=== PATIENT | female | born 1975 | race Hispanic/Latino ===

== ENCOUNTER 2017-10-15 20:16 | Emergency (ER) | payer SELFPAY ==
[2017-10-15 20:17] VITALS: BMI 27.3
[2017-10-15 20:25] VITALS: BP 139/92; PULSE 81; TEMP 98.1; O2SAT 97
[2017-10-15] MEDS ORDERED: Bacitracin Ointment 30 GM TUBE TOP STA (20:37)
[2017-10-15] MEDS ORDERED: Amoxicillin-Clav 875-125 mg Tab PO STA (20:37)
[2017-10-15] MEDS ORDERED: Bacitracin 500 Units/gm Oint Foilpak UD TOP ONE (20:37)
[2017-10-15] MEDS ORDERED: Amoxicillin-Clav 875-125 mg Tab PO ONE (20:50)
[2017-10-15] MEDS ORDERED: Bacitracin 500 Units/gm Oint Foilpak UD ONE ×2 (20:51→20:57)
--- NOTE | 2017-10-15 20:54 | C.PDOC ---
History Of Present Illness Patient is a 42 y/o female who presents to the ED s/p dog bite to the right hand just prior to arrival. Last Tetanus shot 2013. Pt was at [employer] to foster a dog and was getting the dog in the car when the dog bit her. Pt was informed the dog is not up to date with rabies shot; currently quarantined. No other physical complaints at this time. Time Seen by Provider: 10/15/17 20:26 Chief Complaint (Nursing): Bite History Per: Patient History/Exam Limitations: no limitations Onset/Duration Of Symptoms: Mins ([employer]) Current Symptoms Are (Timing): Still Present Location Of Injury: Right: Hand, Posterior: Hand Recent travel outside of the [place]: No - Animal Bite Reports Animal's Immunization Status: Not Recently Immunized Past Medical History Reviewed: Historical Data, Nursing Documentation, Vital Signs Vital Signs: Last Vital Signs Temp 98.1 F 10/15/17 20:22 Pulse 81 10/15/17 20:22 Resp 20 10/15/17 21:10 BP 139/92 H 10/15/17 20:22 Pulse Ox 97 10/15/17 21:22 - Medical History PMH: No Chronic Diseases Surgical History: No Surg Hx Family History: States: Unknown Family Hx - Social History Hx Alcohol Use: Yes Hx Substance Use: No - Immunization History Hx Tetanus Toxoid Vaccination: Yes (2013) Review Of Systems Skin: Positive for: Other (lacerations to right hand) Physical Exam - Physical Exam Appears: Well, Non-toxic, No Acute Distress Skin: Other (puncture wound to dorsal and proximal aspect of right hand) Head: Atraumatic, Normacephalic Eye(s): bilateral: Normal Inspection, EOMI Nose: Normal Oral Mucosa: Moist Chest: Symmetrical Respiratory: No Accessory Muscle Use Extremity: Normal ROM, Capillary Refill (<2 sec), Swelling (mild) Pulses: Left Radial: Normal, Right Radial: Normal Neurological/Psych: Oriented x3, Normal Speech, Normal Motor, Normal Sensation ED Course And Treatment O2 Sat by Pulse Oximetry: 97 (room air) Pulse Ox Interpretation: Normal Progress Note: Pt was offered XR, refused. Plan: Bacitracin and Augmentin administered. Wound thoroughly dressed and irigated by RN. Patient is resting comfortably, and is in no acute distress. Dsicussed risks vs benefits of rabies vaccine, agreed upon no vaccine at this time, dog is being monitored. Patient was instructed to follow up with [facility] in tomorrow in regards to rabies vaccination. Disposition - Disposition Disposition: HOME/ ROUTINE Disposition Time: 20:49 Condition: STABLE Additional Instructions: Follow up with primary medical doctor in 2 days without fail for wound check. Take medications as prescribed. Return to the emergency department at any time if symptoms persist or worsen. Prescriptions: Amoxicillin/Clavulanate [Augmentin 875 MG-125 MG] 1 tab PO BID #14 tab Mupirocin 2% Ointment [Bactroban Ointment] 1 appl TP TID #1 tube Instructions: Animal Bite (ED) Forms: [employer] (Romansh) - Clinical Impression Clinical Impression: Dog bite - Scribe Statement The provider has reviewed the documentation as recorded by the Scribe Hannah Zavala All medical record entries made by the Scribe were at my direction and personally dictated by me. I have reviewed the chart and agree that the record accurately reflects my personal performance of the history, physical exam, medical decision making, and the department course for this patient. I have also personally directed, reviewed, and agree with the discharge instructions and disposition.
[2017-10-15 21:11] VITALS: RESP 20
== END 2017-10-15 21:10 | disposition home or self-care (01) ==
LOC: C.ER 20:16
DX: S61.451A Open bite of right hand, initial encounter (principal); W54.0XXA Bitten by dog, initial encounter